=== PATIENT | female | born 1985 | race African-American/Black ===

== ENCOUNTER 2017-06-01 23:19 | Emergency (ER) | payer SELFPAY ==
[2017-06-02] MEDS ORDERED: Ketorolac Tromethamine 30 MG/ML VIAL ONE (00:02)
[2017-06-02] MEDS ORDERED: Ondansetron HCl/PF 4 MG/2 ML Vial ONE (00:02)
[2017-06-02] MEDS ORDERED: Sodium Chloride 0.9% 1,000 ML ONE (00:02)
[2017-06-02 00:12] LABS: ALT (SGPT) 11 U/L (8-55); AST (SGOT) 17 U/L (5-34); Albumin 3.9 g/dL (3.5-5.0); Alkaline Phosphatase 99 U/L (40-150); Anion Gap 14 mmol/L (10-20); BUN (Urea Nitrogen) 8 mg/dL (7.0-18.7); Bilirubin, Total 0.2 mg/dL (0.2-1.2); Calc. Creatinine Clearance 0 mL/min (70-130); Carbon Dioxide 24 mmol/L (22-29); Chloride 104 mmol/L (98-107); Estimated GFR-MDRD Greater than 90; Globulin 3.6 g/dL (2.4-3.5); Glucose 110 mg/dL (70-105); Lipase 18 U/L (8-78); Potassium 3.2 mmol/L (3.5-5.1); Protein, Total 7.5 g/dL (6.0-8.3); Sodium 139 mmol/L (136-145)
[2017-06-02 00:13] LABS: Blood, Urine Negative (Negative); Clarity Clear (Clear); Glucose, Urine (Dipstick) Negative (Negative); Leukocyte Small (Negative); Nitrite Negative (Negative); Protein, Urine (Dipstick) Trace mg/dL (Neg-Trace); Urobilinogen 0.2 mg/dL (0.2-1.0); pH, Urine 5.5 (5.0-9.0)
[2017-06-02 00:16] LABS: Band 13 % (5-11); Eosinophils 3 % (0-10); Hemoglobin 12.9 g/dL (12.0-16.0); Lymphocytes 32 % (21-51); MDiff Complete? YES; Mean Corpuscular Volume 84.5 fl (81.0-99.0); Mean Platelet Volume 7.8 fL (7.4-10.4); Monocytes 5 % (0-10); Neutrophil 44 % (42-75); PLT Morphology Comment Appears Adequate; Platelet Count 369 thou/uL (130-400); RBC Distribution Width 13.3 % (11.5-14.5); RBC Morphology Normal; Reactive Lymphocytes 3 % (0-10); Red Blood Cell (RBC) Count 4.76 mill/uL (4.20-5.40); White Blood Cell (WBC) Count 7.5 thou/uL (4.8-10.8)
[2017-06-02 00:18] LABS: Bilirubin Negative (Negative); Icto Negative (Negative); Pregnancy Test - Urine (BHCG) Negative (NEGATIVE); Pregu Control Background? CLEAR/WHITE (CLR/WHITE); Pregu Control Bar Appear? YES (CONTROL BAR)
[2017-06-02 00:20] LABS: RBC/HPF None Seen HPF (0-3)
[2017-06-02 00:21] LABS: Bacteria/HPF Rare-Few HPF (None Seen)
[2017-06-02] MEDS ORDERED: Diphenoxylate HCl/Atropine Tablet ONE (00:30)
[2017-06-02] MEDS ORDERED: Cyclobenzaprine 10 MG TAB ONE (00:47)
[2017-06-02] MEDS ORDERED: Ketorolac Tromethamine 60 MG/2 ML VIAL ONE (00:47)
== END 2017-06-02 00:48 | disposition home or self-care (01) ==
LOC: NAV ERS 23:19
DX: R11.2 Nausea with vomiting, unspecified (principal); F17.210 Nicotine dependence, cigarettes, uncomplicated
CPT/HCPCS: 80053; 81003; 81015; 81025; 83690; 85025; 96361; 96374; 96375; J1885; J2405; J7050

== ENCOUNTER 2018-08-05 17:07 | Emergency (ER) | payer SELFPAY | END 2018-08-05 17:53 | disposition home or self-care (01) | LOC: NAV ERS 17:07 | DX: K04.7 Periapical abscess without sinus (principal); F17.210 Nicotine dependence, cigarettes, uncomplicated | CPT/HCPCS: 99282 ==

== ENCOUNTER 2023-01-26 19:56 | Emergency (ER) | payer SELFPAY ==
[2023-01-26] MEDS ORDERED: Lidocaine 1% (PF) 30 ML VIAL ONE (20:05)
[2023-01-26] MEDS ORDERED: Boostrix 0.5 ML (Tdap) VIAL (>/=7 yrs of age) ONE (20:54)
[2023-01-26] MEDS ORDERED: Bacitracin 1 PK ONE (22:02)
== END 2023-01-26 22:19 | disposition home or self-care (01) ==
LOC: NAV ERS 19:56
DX: S61.511A Laceration without foreign body of right wrist, initial encounter (principal); S61.411A Laceration without foreign body of right hand, initial encounter; Z23 Encounter for immunization; F17.210 Nicotine dependence, cigarettes, uncomplicated; W25.XXXA Contact with sharp glass, initial encounter
CPT/HCPCS: 12004; 90471; 90715; J2001